=== PATIENT | female | born 1990 | race Caucasian/White ===

== ENCOUNTER 2018-08-24 09:20 | Emergency (ER) | payer OTHER ==
[2018-08-24 10:36] LABS: Urine Blood TRACE (NEG); Urine Glucose NEGATIVE (NEG); Urine Protein NEGATIVE (NEG); Urine Specific Gravity 1.025 (1.005-1.030)
[2018-08-24 12:36] LABS: BUN Blood Urea Nitrogen 14 mg/dL (7-18); Bicarbonate 29 mmol/L (21-32); Glucose Level 92 mg/dL (74-106); Potassium 4.2 mmol/L (3.5-5.1); Sodium Level 140 mmol/L (136-145)
--- NOTE | 2018-08-24 12:56 | ER ---
Nurse's Notes [facility] Name: Mendy Hoffman Age: 28 yrs Sex: Female : 1990 Arrival Date: 08/24/2018 Time: 09:23 Bed 23 Private MD: Diagnosis: Hypoglycemia, unspecified Presentation: 08/24 09:26 Presenting complaint: Patient states: hypoglycemia has been ongoing since being at [facility]. This morning was 62. Has been eating and drinking like normal. 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 Reports last time this happened she was . Transition of care: patient was not received from another setting of care. Onset of symptoms was August 24, 2018. Care prior to arrival: None. 09:26 Method Of Arrival: Ambulatory 09:26 Acuity: ESTRELLITA 3 13:15 Risk Assessment: Do you want to hurt yourself or someone else? Patient reports no aj1 desire to harm self or others. Initial Sepsis Screen: Does the patient meet any 2 criteria? No. Patient's initial sepsis screen is negative. Does the patient have a suspected source of infection? No. Patient's initial sepsis screen is negative. Historical: - Allergies: 09:28 No Known Allergies; sv - PMHx: :28 Depression; sv - PSHx: :28 None; sv - Immunization history:: Adult Immunizations up to date. - Ebola Screening: : Patient denies travel to an Ebola-affected area in the 21 days before illness onset. Screenin:02 Abuse screen: Denies threats or abuse. Denies injuries from another. Nutritional aj1 screening: No deficits noted. Tuberculosis screening: No symptoms or risk factors identified. 13:15 Fall Risk None identified. aj1 Assessment: 10:02 General: Appears in no apparent distress. comfortable, Behavior is calm, cooperative, aj1 appropriate for age. Pain: Complains of pain in abdomen. Neuro: Level of Consciousness is awake, alert, obeys commands, Oriented to person, place, time, situation. Cardiovascular: Patient's skin is warm and dry. Respiratory: Airway is patent Respiratory effort is even, unlabored, Respiratory pattern is regular, symmetrical. GI: No signs and/or symptoms were reported involving the gastrointestinal system. : No signs and/or symptoms were reported regarding the genitourinary system. EENT: No signs and/or symptoms were reported regarding the EENT system. Derm: No signs and/or symptoms reported regarding the dermatologic system. Skin is pink, warm \T\ dry. normal. Musculoskeletal: No signs and/or symptoms reported regarding the musculoskeletal system. Circulation, motion, and sensation intact. 11:00 Reassessment: Patient appears in no apparent distress at this time. No changes from aj1 previously documented assessment. Patient and/or family updated on plan of care and expected duration. Pain level reassessed. Patient is alert, oriented x 3, equal unlabored respirations, skin warm/dry/pink. 12:00 Reassessment: Patient appears in no apparent distress at this time. No changes from aj1 previously documented assessment. Patient and/or family updated on plan of care and expected duration. Pain level reassessed. Patient is alert, oriented x 3, equal unlabored respirations, skin warm/dry/pink. 13:00 Reassessment: Patient appears in no apparent distress at this time. No changes from aj1 previously documented assessment. Patient and/or family updated on plan of care and expected duration. Pain level reassessed. Patient is alert, oriented x 3, equal unlabored respirations, skin warm/dry/pink. Vital Signs: 09:28 BP 102 / 66; Pulse 64; Resp 16; Temp 98; Pulse Ox 99% ; Weight 54.43 kg; Height 5 ft. 4 sv in. (162.56 cm); Pain 0/10; 13:14 BP 100 / 73; Pulse 62; Resp 16; Pulse Ox 100% on R/A; aj1 09:28 Body Mass Index 20.60 (54.43 kg, 162.56 cm) sv ED Course: 09:23 Patient arrived in ED. mr 09:28 Triage completed. sv 09:33 Arm band placed on. sv 10:00 Mariam Mcnamara FNP-C is PHCP. kb 10:00 Abran Krueger MD is Attending Physician. kb 10:02 Amira Casas, RODOLFO is Primary Nurse. aj1 10:02 Patient has correct armband on for positive identification. Bed in low position. Call aj1 light in reach. Side rails up X 1. 10:02 No provider procedures requiring assistance completed. aj1 12:00 Inserted saline lock: 20 gauge in right antecubital area, using aseptic technique. aj1 Blood collected. 13:14 IV discontinued, intact, bleeding controlled, No redness/swelling at site. Pressure aj1 dressing applied. Administered Medications: No medications were administered Point of Care Testing: Blood Glucose: 09:32 Blood Glucose: 115 mg/dL; sv Ranges: Outcome: 12:55 Discharge ordered by . kb 13:14 Discharged to home ambulatory. aj1 13:14 Condition: good 13:14 Discharge instructions given to patient, Instructed on discharge instructions, follow up and referral plans. Demonstrated understanding of instructions, follow-up care. 13:15 Patient left the ED. aj1 Signatures: Mariam Mcnamara, INSULATION HOSEMAN-C INSULATION HOSEMAN-Amira Walker RN RN aj1 Graciela Diaz RN RN sv Giana Alvarez mr Corrections: (The following items were deleted from the chart) 09:33 09:28 BP 102 / 66; Pulse 64bpm; Resp 16bpm; Pulse Ox 99%; 54.43 kg; Height 5 ft. 4 in.; sv BMI: 20.6; Pain 0/10; sv 10:03 10:02 Pain: Denies pain. aj1 aj1
--- NOTE | 2018-08-24 12:56 | EDPHYS ---
Physician Documentation [facility] Name: Mendy Hoffman Age: 28 yrs Sex: Female : 1990 Arrival Date: 08/24/2018 Time: 09:23 Bed 23 Private MD: ED Physician Abran Krueger HPI: 08/24 11:30 This 28 yrs old Female presents to ER via Ambulatory with complaints of Low kb Blood Sugar. 11:30 The patient or guardian reports hypoglycemia, that was potentially precipitated by no kb particular event. Onset: The symptoms/episode began/occurred 3 day(s) ago. Associated signs and symptoms: Pertinent positives: None. Current symptoms: In the emergency department the patient's symptoms have improved. The patient has experienced similar episodes in the past. The patient has not recently seen a physician. Historical: - Allergies: :28 No Known Allergies; sv - PMHx: : Depression; sv - PSHx: :28 None; sv - Immunization history:: Adult Immunizations up to date. - Ebola Screening: : Patient denies travel to an Ebola-affected area in the 21 days before illness onset. ROS: 11:29 Constitutional: Negative for fever, chills, and weight loss, Cardiovascular: Negative kb for chest pain, palpitations, and edema, Respiratory: Negative for shortness of breath, cough, wheezing, and pleuritic chest pain, Abdomen/GI: Negative for abdominal pain, nausea, vomiting, diarrhea, and constipation, Back: Negative for injury and pain, MS/Extremity: Negative for injury and deformity, Skin: Negative for injury, rash, and discoloration, Neuro: Negative for headache, weakness, numbness, tingling, and seizure. Exam: 11:29 Constitutional: This is a well developed, well nourished patient who is awake, alert, kb and in no acute distress. Head/Face: Normocephalic, atraumatic. Chest/axilla: Normal chest wall appearance and motion. Nontender with no deformity. No lesions are appreciated. Cardiovascular: Regular rate and rhythm with a normal S1 and S2. No gallops, murmurs, or rubs. Normal PMI, no JVD. No pulse deficits. Respiratory: Lungs have equal breath sounds bilaterally, clear to auscultation and percussion. No rales, rhonchi or wheezes noted. No increased work of breathing, no retractions or nasal flaring. Abdomen/GI: Soft, non-tender, with normal bowel sounds. No distension or tympany. No guarding or rebound. No evidence of tenderness throughout. Skin: Warm, dry with normal turgor. Normal color with no rashes, no lesions, and no evidence of cellulitis. MS/ Extremity: Pulses equal, no cyanosis. Neurovascular intact. Full, normal range of motion. Neuro: Awake and alert, GCS 15, oriented to person, place, time, and situation. Cranial nerves II-XII grossly intact. Motor strength 5/5 in all extremities. Sensory grossly intact. Cerebellar exam normal. Normal gait. Vital Signs: 09:28 BP 102 / 66; Pulse 64; Resp 16; Temp 98; Pulse Ox 99% ; Weight 54.43 kg; Height 5 ft. 4 sv in. (162.56 cm); Pain 0/10; 13:14 BP 100 / 73; Pulse 62; Resp 16; Pulse Ox 100% on R/A; aj1 09:28 Body Mass Index 20.60 (54.43 kg, 162.56 cm) sv MDM: 10:01 Patient medically screened. kb 11:29 Data reviewed: vital signs, nurses notes. Data interpreted: Pulse oximetry: on room air kb is 99 %. Interpretation: normal. Counseling: I had a detailed discussion with the patient and/or guardian regarding: the historical points, exam findings, and any diagnostic results supporting the discharge/admit diagnosis, lab results, the need for outpatient follow up, a family practitioner, to return to the emergency department if symptoms worsen or persist or if there are any questions or concerns that arise at home. 08/24 09:49 Order name: Urine Dipstick--Ancillary (enter results); Complete Time: 10:43 bd 08/24 09:49 Order name: Urine --Ancillary (enter results); Complete Time: 10:43 bd 08/24 09:46 Order name: Urine Dipstick-Ancillary (obtain specimen); Complete Time: 09:57 kb 08/24 10:40 Order name: Glucose, Ancillary Testing; Complete Time: 10:43 EDMS 08/24 10:43 Order name: Basic Metabolic Panel; Complete Time: 12:46 kb 08/24 10:43 Order name: IV Start; Complete Time: 12:13 kb Administered Medications: No medications were administered Point of Care Testing: Blood Glucose: 09:32 Blood Glucose: 115 mg/dL; sv Ranges: Critical Glucose Levels:Adult <50 mg/dl or >400 mg/dl <40 mg/dl or >180 mg/dl Disposition: 15:27 Co-signature as Attending Physician, Abran Krueger MD I agree with the assessment and [facility] plan of care. Disposition: 08/24/18 12:55 Discharged to Home. Impression: Hypoglycemia, unspecified. - Condition is Stable. - Discharge Instructions: Hypoglycemia, [id number]. - Medication Reconciliation Form, Thank You Letter, Antibiotic Education, Prescription Opioid Use form. - Follow up: Emergency Department; When: As needed; Reason: Worsening of condition. Follow up: Private Physician; When: 2 - 3 days; Reason: Recheck today's complaints, Continuance of care, Re-evaluation by your physician. Signatures: Dispatcher [employer] EDMariam Vo, FIDEL-C EXTENSION SPECIALIST-Amira Walker RN RN aj1 Graciela Diaz RN RN sv Anderson, Corey, MD MD [facility] Corrections: (The following items were deleted from the chart) 13:15 12:55 08/24/2018 12:55 Discharged to Home. Impression: Hypoglycemia, unspecified. aj1 Condition is Stable. Forms are Medication Reconciliation Form, Thank You Letter, Antibiotic Education, Prescription Opioid Use. Follow up: Emergency Department; When: As needed; Reason: Worsening of condition. Follow up: Private Physician; When: 2 - 3 days; Reason: Recheck today's complaints, Continuance of care, Re-evaluation by your physician. kb
[2018-08-24 15:09] VITALS: TEMP 98
[2018-08-24 15:10] VITALS: BP 100/73; O2SAT 100
== END 2018-08-24 13:15 | disposition home or self-care (01) ==
LOC: ER 09:20
DX: E16.2 Hypoglycemia, unspecified (principal); F32.9 Major depressive disorder, single episode, unspecified
CPT/HCPCS: 36415; 80048; 81003; 81025; 82962; 99283

== ENCOUNTER 2024-09-23 07:15 | Day surgery (SDC) | payer OTHER ==
[2024-09-23] MEDS ORDERED: SUGAMMADEX SODIUM 200 MG/2 ML VIAL IV ONE (07:45)
[2024-09-23] MEDS ORDERED: FENTANYL CITR 100 MCG/2 ML ONE (07:52)
[2024-09-23] MEDS ORDERED: ROCURONIUM 50 MG/5 ML VIAL IV ONE (07:52)
[2024-09-23] MEDS ORDERED: MIDAZOLAM HCL 2 MG/2 ML INJ ONE (07:52)
[2024-09-23] MEDS ORDERED: ONDANSETRON 4 MG/2 ML VIAL ONE (07:52)
[2024-09-23] MEDS ORDERED: propofoL 200 MG/20 ML VIAL IV ONE (07:52)
[2024-09-23] MEDS ORDERED: LIDOCAINE 2% MPF 5 ML VIAL ONE (07:53)
[2024-09-23] MEDS: Ringers Lactate 1,000 ML IV ONE (07:57)
[2024-09-23] MEDS: SCOPOLAMINE HYDROBROMIDE PATCH TD ONE (08:14)
[2024-09-23 08:21] LABS: Absolute Eosinophils 0.2 K/uL (0-0.5); Absolute Lymphocytes (CBC) 1.3 K/uL (0.7-4.9); Absolute Monocytes 0.3 K/uL (0.1-1.3); Absolute Neutrophil 1.3 K/uL (1.8-8.0); Basophils % 0.9 % (0-1.3); Eosinophils % 6.7 % (0-4.4); Hematocrit 35.5 % (36.0-45.0); Hemoglobin 12.5 g/dL (12.0-15.0); Lymphocytes % 40.1 % (15.3-44.8); MCH 32.4 pg (27.0-35.0); MCHC 35.4 g/dL (32.0-36.0); MCV 91.7 fL (80-100); MPV 8.1 fL (7.6-11.3); Monocytes % 10.4 % (3.3-12.3); Neutrophils % 41.9 % (41.7-73.7); Nucleated Red Blood Cells % 0.1 % (0-0); Platelets 200 thou/uL (152-406); RBC Red Blood Cell Count 3.87 M/uL (3.86-4.86); Red Cell Distribution Width 12.7 % (12.1-15.2)
[2024-09-23] MEDS ORDERED: dexAMETHasone 10 MG/ML VIAL ONE (10:12)
[2024-09-23] MEDS ORDERED: GLYCOPYRROLATE 0.2 MG/ML SYR ONE ×2 (10:27→12:10)
[2024-09-23] MEDS: BUPIVACAINE 0.25% PF 30 ML VIAL ONE (10:30)
[2024-09-23] MEDS ORDERED: KETOROLAC 30 MG/ML INJ ONE (11:57)
[2024-09-23] MEDS ORDERED: NEOSTIGMINE 1 MG/ML -10 ML VIAL ONE (11:58)
[2024-09-23] MEDS ORDERED: Mastisol Adhesive Liq ONE (12:10)
[2024-09-23] MEDS: FENTANYL CITR 100 MCG/2 ML ONE (12:38)
[2024-09-23 13:02] VITALS: O2SAT 97
[2024-09-23] MEDS: HYDROCODONE/APAP 5/325 MG TAB ONE (13:15)
[2024-09-23 14:00] VITALS: BP 111/71; TEMP 97.8
--- NOTE | 2024-09-24 03:10 | OP ---
Date of Procedure: 09/23/2024 Surgeon: Vicky Kaur MD Water Manager: Josselyn Hall Preoperative Diagnoses: Pelvic pain, dyspareunia, bladder pain syndrome. Postoperative Diagnoses: Pelvic pain, dyspareunia, bladder pain syndrome. Stage III endometriosis o f the left posterior broad ligament, left and right lateral frost, bilateral uterosacral ligaments an d anterior cul-de-sac. Estimated Blood Loss: Less than 25. Complications: No complications. Drains: No drains. Specimens: 1. Endometriosis of the left lateral wall, periureter, and uterosacral. 2. Left posterior broad ligament, which is a deep infiltrating endometriosis. 3. Right lateral wall and uterosacral ligament. 4. Left anterior cul-de-sac and bladder pillar, bilateral tubes. Procedures Performed: 1. Diagnostic laparoscopy, bilateral salpingectomy. 2. Extensive endometriosis excision from all these areas. 3. Left ureterolysis. Indications: The patient is a 34-year-old female who presented with significant pelvic pain and dysp areunia. Ultrasound was done. No adnexal masses were noted. No infections were noted on testing. She did not have PID. Her pelvic pain and her symptoms are all consistent with endometriosis, althou gh she was empirically treated with GnRH antagonist, elagolix and her symptoms have improved on 200 m g twice a day. However, her symptoms of side effects from GnRH antagonist like menopausal symptoms a nd decreased sexual desire have become severe and intolerable. Therefore, we discussed about all dif ferent other options, including laparoscopy excision. She also has bladder pain symptoms, and her cy stoscopy was performed. There were some erythematous areas on the dome of her bladder, so discussed that this could be bladder endometriosis as well and if this was found, she was consented for excisio n from the bladder, repair of the bladder, and cystoscopy. She was taken to the hospital, re-consented in the preoperative area. Her was present by her side. Questions and answers were done to their satisfaction. Smoking cessation was stressed. Procedure In Detail: She was taken back to the OR, placed in supine fashion on the operative table. General anesthesia was given. She was placed in a dorsal lithotomy position using Frank stirrups. Pelvic exam was performed. Then, abdomen was prepped with ChloraPrep; vulva, vagina, and perineum wi th Betadine and draped in a sterile fashion. Mitchell was placed to drain the bladder and retracted inf eriorly. The diagnostic uterine manipulator was introduced into the uterus and fixed in place. 1 cm infraumbilical incision was made with the scalpel using the open laparoscopy technique. Skin wa s incised. Fascia was incised, tagged with 0 Vicryl sutures. Peritoneum was entered sharply with th e hemostat. Then, after placing S retractors, introducing the Edmar, and adequate insufflation, sit e of entry was checked and was unremarkable. Upper abdominal surface unremarkable. Slightly enlarge d liver. The patient was placed in Trendelenburg position. Pelvic exam was performed after placing right and left 5 mm ports, and then a suprapubic 5 port. Endometriosis was noted in a significant fa shion on the left lateral wall, periureter, and creeping onto the uterosacral. There was significant deep infiltrating endometriosis in the posterior broad ligament immediately adjacent to the uterus. This was in the area of her uterine vessels and the posterior broad ligament vessels. Similar area on the right side also had implants; however, these did not appear to be deep infiltrating and were m ostly superficial, and the implants also extended onto the uterosacral ligament. There were suspicio us implants along with the scar and the anterior cul-de-sac, especially in the left anterior bladder pillar area. No other endometriosis implants were seen. Mostly scar from was note d. There was no evidence of any isthmocele that I could detect even after careful examination, so plan w as to excise the endometriosis both lateral frost and the uterosacral ligaments as well as the medical lab technician ior broad ligament, and then remove the anterior cul-de-sac endometriosis. Bilateral salpingectomy was performed by taking down the tubes with the help of LigaSure from the fim briated end to the cornual end, and specimens were handed out for permanent pathology. Left ureterolysis: The ureter was opened between the IP ligament and the ureter. The peritoneum ope bertha here sharply. Dissection carried to dissect the ureter with its periureteric sheath and vascular supply, medially off the medial leaf of the broad ligament and to the proximal portion of the pelvis there was not any endometriosis on the peritoneum. The ureteric dissection was carried down to the area of the endometriosis, where it was adhered to th e retroperitoneal area with fibrosis. This was clearly taken down laterally. The ureter was dissect ed from the lateral wall, crossing underneath the uterine vessels. The uterine vessels were also dis sected and clearly laid out. Then, on the medial aspect, the periureteric tissue was loosened up fro m the medial leaf of the broad ligament by sharp dissection using scissors. Then, the ureter was dis sected gradually medially, taking down the fibrotic tissue from the endometriosis and from the overly ing tissues. Once the ureter was taken down all the way to the level of the ureteric tunnel, and it was between the distal uterosacral ligament and the ureter, this completely freed up the ur eter here. The endometriosis excision was started. The left uterosacral endometriosis and lateral wall endometr iosis were excised with the help of the LigaSure and handed out for permanent pathology. The right posterior broad ligament was opened up superiorly immediately above the level of the ____ ureter and dissection was carried into the posterior broad ligament taking it away from the roun d ligament, and then carrying it towards the parauterine vessels of the ascending portion of the uter ine vessels, and then carefully preserving them taking down the dissection to the level of the uterin e artery entry at the level of the internal os. Then, overlying endometriosis was excised from the u nderlying vessels and veins, and these were carefully occasionally ligated as needed, but mostly pres erved and stripped towards the distal uterosacral ligament. From here, the distal uterosacral ligame nt was shaved for me to detach all the endometriotic implants and excise them. These were handed off for permanent pathology. The right lateral wall was then dissected by opening between the ureter and the broad ligament. The peritoneum sharply was opened with scissors. Then, dissection was carried towards the uterine vessel s, then towards the lateral aspect of the uterus, excising these implants. Then dissection was etienne ed across the ureter inferiorly towards the uterosacral ligament, and dissection carried along the ut erosacral ligaments shaving off the endometriotic implant off it without actually cutting and domenico g the integrity of the uterosacral insertion. Then, the endometriosis was removed from the underlyin g vessels and the ureter dissected laterally, and this was excised and handed off for pathology. Anterior cul-de-sac endometriosis was opened up by opening the paravesical space sharply with scissor s and then opening up the bladder pillar carefully dissecting the bladder inferiorly on the anterior vaginal wall and medially preserving the fascial planes as well. The endometriosis was excised and h ere in this area after opening up the bladder flap, I inspected the scar and there was not a n apparent isthmocele noted. No reason to continue the dissection of the bladder inferiorly because I did not see any suspicious lesion. Thorough irrigation and suction were performed in all the areas of dissection. Ureters had no evidence of electrical, mechanical, or thermal injury to them. All t he trocars were removed after gas was desufflated, and irrigation and suction were performed. The fa scial sites at the umbilicus after taking out the Edmar were closed with the help of tagged 0 Vicryl sutures tied to each other, and simple 4-0 Monocryl sutures for all skin incisions. Mitchell and the u terine manipulator were removed. Instrument, needle, and sponge counts were correct at the end of e case. The patient tolerated the procedure well. She will be recovered from anesthesia and taken t o PACU in stable condition. She was called after she left the hospital to give her debriefing of her findings. We will discuss these at length with pictures in the office at her one-week postop. She will be a good candidate either to continue her once a day elagolix or an IUD in approximately 6 to 12 weeks. No other further intervention at this time. ALTHEA/BARNEY Voice ID: [id number] Report ID: [id number]
== END 2024-09-23 14:05 | disposition home or self-care (01) ==
LOC: OR 07:15
PROVIDERS: ATTEND Obstetrics & Gynecology
PROC: 0WBF4ZZ Excision of Abdominal Wall, Percutaneous Endoscopic Approach (ICD-10-PCS; 2024-09-23)
PROC: 0UBF4ZZ Excision of Cul-de-sac, Percutaneous Endoscopic Approach (ICD-10-PCS; 2024-09-23)
PROC: 0UB44ZZ Excision of Uterine Supporting Structure, Percutaneous Endoscopic Approach (ICD-10-PCS; 2024-09-23)
PROC: 0DBW4ZZ Excision of Peritoneum, Percutaneous Endoscopic Approach (ICD-10-PCS; 2024-09-23)
PROC: 0TN74ZZ Release Left Ureter, Percutaneous Endoscopic Approach (ICD-10-PCS; 2024-09-23)
PROC: 0UB74ZX Excision of Bilateral Fallopian Tubes, Percutaneous Endoscopic Approach, Diagnostic (ICD-10-PCS; principal; 2024-09-23 09:30)
DX: N94.6 Dysmenorrhea, unspecified (principal); R10.2 Pelvic and perineal pain; N94.10 Unspecified dyspareunia; R39.89 Other symptoms and signs involving the genitourinary system; N80.3C2 Endometriosis of the left uterosacral ligament, unspecified depth; N80.3C3 Endometriosis of bilateral uterosacral ligament(s), unspecified depth; N80.319 Endometriosis of the anterior cul-de-sac, unspecified depth; N80.C19 Endometriosis of the anterior abdominal wall, unspecified depth; N28.89 Other specified disorders of kidney and ureter
CPT/HCPCS: 85025; 36415; 86900; 86850; 84703; 86901; 88302; 88305; 58700; 58662; 50949; J2704; J2710; J2003; J2250; J3010 ×2; J1100; J2405; J7120